=== PATIENT | male | born 1995 | race Two or more races ===

== ENCOUNTER 2018-09-24 18:41 | Emergency (ER) | payer MEDICAID ==
[~2018-09-24] VITALS: Ht 188 cm; Wt 98.9 kg
[2018-09-24 18:51] VITALS: BP 178/84
== END 2018-09-24 22:58 | disposition left against medical advice (07) ==
LOC: ER 18:41
DX: R51 Headache (principal); Z53.21 Procedure and treatment not carried out due to patient leaving prior to being seen by health care provider
CPT/HCPCS: 70450; 72125

== ENCOUNTER 2019-03-12 23:40 | Emergency (ER) | payer MEDICAID ==
[~2019-03-12] VITALS: Ht 185.4 cm; Wt 99.8 kg
[2019-03-13 02:35] VITALS: BP 133/51
[2019-03-13] MEDS ORDERED: ALBUTEROL SULF 2.5 MG/0.5ML(0.5%) NEB SOLN NEB ONE (03:30)
[2019-03-13] MEDS ORDERED: IPRATROPIUM BROM 0.5 MG/2.5ML INH SOL NEB ONE (03:30)
== END 2019-03-13 04:00 | disposition home or self-care (01) ==
LOC: ER 23:43
DX: J45.909 Unspecified asthma, uncomplicated (principal); J01.00 Acute maxillary sinusitis, unspecified
CPT/HCPCS: 71045; 94640; 99283; J7611; J7644